=== PATIENT | female | born 1990 | race Caucasian/White ===

== ENCOUNTER 2018-11-27 13:36 | Emergency (ER) | payer OTHER ==
[~2018-11-27] VITALS: Ht 165.1 cm; Wt 59.0 kg
[~2018-11-27 13:36] MED LIST: CORTISPORIN OTI10 M2 OTIC; LEVEMIR SUBQ; NAPROSYN500 MG PO; NOVOLOG100 UNIT/1 SUBQ
[2018-11-27] MEDS ORDERED: TRESIBA FL100 UNIT/1 SUBQ (14:06)
[2018-11-27] MEDS ORDERED: LEVAQUIN 500 M500 M1 PO (14:38)
[2018-11-27 15:03] VITALS: BP 104/68
== END 2018-11-27 15:04 | disposition home or self-care (01) ==
LOC: ER 13:36
DX: Q15.8 Other specified congenital malformations of eye (principal); E11.9 Type 2 diabetes mellitus without complications; Z79.4 Long term (current) use of insulin; Z88.0 Allergy status to penicillin

== ENCOUNTER 2019-07-26 09:57 | Day surgery (SDC) | payer OTHER ==
[~2019-07-26] VITALS: Ht 165.1 cm; Wt 61.2 kg
--- NOTE | ~2019-07-26 | O ---
[facility] [place] [address] OPERATIVE REPORT Name: NATIVIDAD CRUMP Room #: 150-1 [facility] M.R.#: [id number] Admission: 07/26/19 Attend Phys: Matti Reilly MD Discharge: Date of : 89 Report #: [id number] THIS REPORT FOR: //name// CC: BESSY Reilly DATE OF SERVICE: 07/26/2019 PREOPERATIVE DIAGNOSIS: Fibroadenomas x 2, left breast. POSTOPERATIVE DIAGNOSIS: Fibroadenomas x 2, left breast. OPERATIVE PROCEDURE DONE: Excision of fibroadenomas x 2, left breast. OPERATING SURGEON: Matti Reilly MD INDICATIONS FOR THE PROCEDURE: The patient is a 29-year-old female who presented with features of lump in the left breast, two of them __ gradually increasing in size. Clinically, this was noted to be a fibroadenoma. The patient was advised excision of the same. DESCRIPTION OF PROCEDURE: After explaining to the patient in detail and informed consent was obtained, the patient was identified in the preoperative holding area. The patient was transferred to the operating room and was placed in supine position. After induction of anesthesia, the left breast was prepped and draped in a sterile fashion. Through a transverse 3 cm incision in the left periareolar region. The fibroadenoma was identified. The large fibroadenoma measured approximately about 4 cm and the smaller one measured approximately about 3 cm. The larger fibroadenoma was then gently dissected from the surrounding tissue using a hemostat and blunt dissection. Bleeding points were cauterized. The adenoma was then excised and was sent for histopathology. The smaller medial adenoma measured approximately about 3 cm. This again was dissected circumferentially and was finally excised. The wound was thoroughly irrigated and was then closed in 2 layers using 3-0 Vicryl for the subcutaneous tissue. Skin was closed with 4-0 Monocryl for all the incisions. Dermabond was applied. The patient was stable at the end of the procedure. The patient was awoken from anesthesia and was transferred to the recovery room in stable condition. ESTIMATED BLOOD LOSS: Minimal. CONDITION OF THE PATIENT: Stable. FLUIDS GIVEN: Per Anesthesia note. [address] [address] OPERATIVE REPORT Name: NATIVIDAD CRUMP Room #: 150-1 [facility]..#: [id number] Admission: 07/26/19 Attend Phys: Matti Reilly MD Discharge: Date of : [birth year] Report #: [id number] SPECIMEN SENT: Fibroadenoma x 2. By: 1318 [id number] Matti Reilly MD /nt
[~2019-07-26 09:57] MED LIST changes: +LEVAQUIN 500 M500 M1 PO; +TRESIBA FL100 UNIT/1 SUBQ
[2019-07-26 11:00] LABS: HEMATOCRIT 40.5 % (37.0-47.0); HEMOGLOBIN 13.3 gm/dL (12.0-15.0); MCHC 32.7 g/dL (28.0-37.0); MCV 82.7 fL (80.0-100.0); RBC 4.9 mil/uL (4.20-5.00); RDW 14.7 % (10.5-14.5); WBC 7.1 thou/uL (4.0-11.0)
[2019-07-26 12:47] VITALS: BP 101/59
[2019-07-26] MEDS ORDERED: NORCO 5-325 TA1 EAC1 PO (13:08)
[2019-07-26 13:42] VITALS: BP 101/59
--- NOTE | 2019-07-27 17:26 | EKG ---
[place] [address] [facility] [employer] [address] ELECTROCARDIOGRAM REPORT Name: NATIVIDAD CRUMP Room #: DEP [facility]#: [id number] Admission: 07/26/19 Attend Phys: Matti Reilly MD Discharge: 07/26/19 Date of : [birth year] Report #: [id number] THIS REPORT FOR: //name// [facility] Test Date: 2019-07-26 Test Time: 10:52:21 Pat Name: NATIVIDAD CRUMP Department: Room: Gender: F Clinical Laboratory Technologist: Dulce SMALLS : 1990 Requested By: Matti Reilly Order Number: [id number] MD: Migel Cutler Measurements Intervals Fowler Rate: 77 P: 67 GA: 124 QRS: 75 QRSD: 86 T: 41 QT: 385 QTc: 436 Interpretive Statements Sinus rhythm Normal tracing No previous ECG available for comparison Electronically Signed On 07-27-2019 17:26:16 AIR BRAKE OPERATOR by Migel Cutler [email or web address] <ELECTRONICALLY SIGNED> By: Migel Cutler MD, [facility] 07/27/19 1726 1052 1052 Migel Cutler MD, FACC /EPI
--- NOTE | 2019-07-28 14:07 | PATH ---
[facility] [address] [place] [address] PATHOLOGY RPT PROCEDURE Name: NATIVIDAD CRUMP Room #: DEP [facility] M.R.#: [id number] Admission: 07/26/19 Date of : 89 Discharge: 07/26/19 Report #: [id number] Path Case #: [id number] [facility] Accession Number: [id number] . 01 Material submitted: . breast - LEFT BREAST MASS X2. Modifiers: left . 01 Clinical history: . Fibroadenoma left breast . 02 Diagnosis: Breast, left breast mass x2, excision: - Fibroadenoma x2. - Negative for atypia or malignancy. (IUV:joycelyn; 07/28/2019) QMS 07/28/2019 1203 Local . 02 Comment: Scattered foci show ink adjacent to the lesion consistent with a disrupted capsule; however, these may not represent true margins. Please correlate with intraoperative findings for a complete resection of the fibroadenomas (x2). . (IUV:joycelyn; 07/28/2019) . 02 Electronically signed: . Emmy Ybarra MD, Pathologist NPI- [id number] . 01 Gross description: . The specimen is received in formalin, labeled "Natividad Crump, left breast mass x2". Received are two segments of pale cuevas fibrous soft tissue measuring 2.6 x 2.5 x 2.2 and 4.3 x 3.5 x 3.3 cm, and weighing 9 and 23 g, respectively. The surgical margin of the smaller segment is inked black and the surgical margin of the larger segment is inked blue. Sectioning through the smaller segment reveals pale cuevas, fibrous cut surfaces throughout. Sectioning through the larger segment reveals pale cuevas, glistening to granular-appearing cut surfaces throughout. The specimen is submitted representatively as follows: . A1-A5 alternating sections of smaller segment A6-A12 practice representative sections of alternating segments of larger segment. . The cold ischemic time and time in formalin are not provided. The time out of formalin is 6:50 p.m. on 07/27/2019. (CAA; 07/27/2019) QAC/QAC 07/27/[address] [address] PATHOLOGY RPT PROCEDURE Name: NATIVIDAD CRUMP Room #: DEP [facility] M.R.#: [id number] Admission: 07/26/19 Date of : 89 Discharge: 07/26/19 Report #: [id number] Path Case #: [id number] . 02 Pathologist provided ICD-10: D24.2 . 02 CPT . 407263 Specimen Comment: A courtesy copy of this report has been sent to [phone] Specimen Comment: [phone] Specimen Comment: Report sent to / DR WHITEHEAD Performed at: [address] [facility], [place], [place] [id number] MD Marshall Bonilla MD Phone: [phone] Performed at: [address] [facility] [id number] MD Emmy Ybarra MD Phone: [phone]
== END 2019-07-26 14:15 | disposition home or self-care (01) ==
LOC: OR 09:57 → TBA 13:08 → OR 14:15
PROVIDERS: Surgery
DX: D24.2 Benign neoplasm of left breast (principal); E11.9 Type 2 diabetes mellitus without complications; D64.9 Anemia, unspecified; Z98.890 Other specified postprocedural states; Z79.899 Other long term (current) drug therapy; Z79.4 Long term (current) use of insulin; Z91.040 Latex allergy status; Z88.0 Allergy status to penicillin
CPT/HCPCS: 50010; 50101; 50386; 50417; 54118; 56524; 56526; 62110; 62900; 70005